=== PATIENT | female | born 1990 | race Caucasian/White ===

== ENCOUNTER 2017-01-09 03:24 | Emergency (ER) | payer OTHER ==
[~2017-01-09] VITALS: Ht 170.2 cm; Wt 103.5 kg
[2017-01-09 03:26] VITALS: Ht 170.2 cm; Wt 103.5 kg
--- NOTE | 2017-01-09 03:51 | ERD ---
ER Documentation Chief Complaint Date/Time DATE: 01/09/17 TIME: 03:49 Chief Complaint c/o splashed with urine to OU while @ work. HPI 26-year-old female presents here in emergency department for complaints of a body fluid splash into her eyes, patient was changing catheter, urine spilled into her eyes. Patient denies any pain. Patient denies any other symptoms. Patient states that she does notknow a lot of information about the patient. ROS All systems reviewed and are negative except as per history of present illness. Medications Home Meds Active Scripts Lamivudine-Zidovudine* (Lamivudine-Zidovudine*) 150-300 Mg Tablet, 1 TAB PO BID for 30 Days, TAB Prov:ANAIS PAN NP 01/09/17 Reported Medications [none] Unknown Strength No Conflict Check 01/09/17 Allergies Allergies: Coded Allergies: No Known Allergy (Unverified , 01/09/17) PMhx/Soc Medical and Surgical Hx: pt denies Medical Hx, pt denies Surgical Hx FmHx Family History: coronary disease, diabetes, other Physical Exam Vitals Vital Signs Date Time Temp Pulse Resp B/P Pulse Ox O2 Delivery O2 Flow Rate FiO2 01/09/17 05:59 98.6 70 14 122/68 99 Room Air 01/09/17 03:26 98.7 92 18 132/80 99 Physical Exam GENERAL: The patient is well developed and appropriate for usual state of health, in no apparent distress. CHEST: Clear to auscultation bilaterally. There are no rales, wheezes or rhonchi. HEART: Regular rate and rhythm. No murmurs, clicks, rubs or gallops. No S3 or S4. ABDOMEN: Soft, nontender and nondistended. Good bowel sounds. No rebound or guarding. No gross peritonitis. No gross organomegaly or masses. No Tipton sign or McBurney point tenderness. BACK: No midline or flank tenderness. EXTREMITIES: Equal pulses bilaterally. There is no peripheral clubbing, cyanosis or edema. No focal swelling or erythema. Full range of motion. Grossly neurovascularly intact. NEURO: Alert and oriented. Cranial nerves 2-12 intact. Motor strength in all 4 extremities with 5/5 strength. Sensation grossly intact. Normal speech and gait. SKIN: There is no apparent rash or petechia. The skin is warm and dry. HEMATOLOGIC AND LYMPHATIC: There is no evidence of excessive bruising or lymphedema. No gross cervical, axillary, or inguinal lymphadenopathy. Results 24 hrs Laboratory Tests Test 01/09/17 04:33 Total Bilirubin 0.4mg/dl Direct Bilirubin 0.00mg/dl Indirect Bilirubin 0.4mg/dl Aspartate Amino Transf (AST/SGOT) 73IU/L Alanine Aminotransferase (ALT/SGPT) 156IU/L Alkaline Phosphatase 76IU/L Total Protein 8.3g/dl Albumin 4.5g/dl Hepatitis B Surface Antigen NEGATIVE Hepatitis B Surface Antibody INDETERMINATE Hepatitis C Antibody NEGATIVE HIV (1&2) Antibody NEGATIVE Procedures/MDM medical decision making: Patient had body fluid exposure, will be treated with Combivir to prevent HIV patient laboratory test was drawn, results of laboratory test results was advised to be picked up in 2-3 days. Patient was advised to follow-up on HIV status of patient, she was taking care of. Patient is advised to follow-up with primary care doctor as necessary. Return to emergency department for any worsening symptoms. Prescription: Combivir, Disposition: Home. Stable. Departure Diagnosis: Primary Impression: Exposure to blood or body fluid Condition: Stable Patient Instructions: Body Fluid Exposure, Health Care Worker ANAIS PAN NP Jan 09, 2017 03:51
[2017-01-09] MEDS ORDERED: LAMI1TAB PO (03:58)
[2017-01-09 05:04] LABS: ALBUMIN 4.5 g/dl (3.3-4.9); BILIRUBIN,INDIRECT 0.4 mg/dl (0-1.1); BILIRUBIN,TOTAL 0.4 mg/dl (0.2-1.3); TOTAL PROTEIN 8.3 g/dl (6.1-8.1)
[2017-01-09 05:59] VITALS: BP 122/68; PULSE 70; RESP 14; TEMP 98.6
== END 2017-01-09 06:04 | disposition home or self-care (01) ==
LOC: FTE 03:24
DX: Z77.21 Contact with and (suspected) exposure to potentially hazardous body fluids (principal)
CPT/HCPCS: 80076; 86703; 86706; 86803; 87340; Z7502; 99283